=== PATIENT | female | born 1940 | race Caucasian/White ===

== ENCOUNTER 2019-10-08 11:18 | Inpatient (IN) ==
[2019-10-08] MEDS ORDERED: SODIUM CHLORIDE 0.9% 1,000 ML IV STA (11:59)
[2019-10-08] MEDS ORDERED: ONDANSETRON 4 MG/2 ML VIAL IV STA (11:59)
[2019-10-08] MEDS ORDERED: FAMOTIDINE 20 MG/2 ML VIAL IV STA (11:59)
[2019-10-08] MEDS ORDERED: DEXAMETHASONE 4 MG/1 ML VIAL IV STA (11:59)
[2019-10-08] MEDS ORDERED: CETIRIZINE 10 MG TABLET PO STA (11:59)
[2019-10-08 12:57] LABS: Albumin 3.1 G/DL (3.4-5.0); Bilirubin,Total 0.4 MG/DL (0.2-1.0); Calcium 9.5 MG/DL (8.5-10.1); Osmolality,Calculated 278.5 MOS/KG (273-304); Total Protein 8.4 G/DL (6.4-8.3)
[2019-10-08 13:43] LABS: Apearance,Urine CLEAR (Clear); Bilirubin,Urine Negative (Negative); Blood, Urine Negative (Negative); Glucose,Urine (UA) Negative (Negative); Ketones,Urine Negative (Negative); Nitrite,Urine Negative (Negative); Protein,Urine Negative; RBC,Urine 1 /HPF (0-4); Squamous Epithelial Cell,Urine Occasional /HPF (0-10); Urine Color Straw (Yellow); Urine Specific Gravity 1.006 (1.001-1.035); Urine Urobilinogen < 2.0 EU/DL (0.2-1.0); WBC,Urine 2 /HPF (0-6)
[2019-10-08] MEDS ORDERED: GLUCAGON 1 MG VIAL IM PRN (14:38)
[2019-10-08] MEDS ORDERED: DOCUSATE SODIUM 100 MG CAPSULE PO PRN (14:38)
[2019-10-08] MEDS ORDERED: hydrALAZINE 20 MG/1 ML VIAL IV PRN (14:38)
[2019-10-08] MEDS ORDERED: ONDANSETRON 4 MG/2 ML VIAL IV PRN (14:38)
[2019-10-08] MEDS ORDERED: DEXTROSE 50% 25 GM/50 ML VIAL IV PRN (14:38)
[2019-10-08] MEDS ORDERED: ACETAMINOPHEN 325 MG TABLET PO PRN (14:38)
[2019-10-08] MEDS ORDERED: guaiFENesin/DM ER 600-30 MG TABLET PO PRN (14:38)
[2019-10-08] MEDS ORDERED: ENOXAPARIN 40 MG/0.4 ML SYRINGE SUBCUT SCH (15:00)
[2019-10-08] MEDS: ENOXAPARIN 80 MG/0.8 ML SYRINGE SUBCUT SCH (16:26)
[2019-10-08] MEDS: INSULIN LISPRO 100 UNIT/ML SUBCUT SCH ×2 (17:59→21:15)
[2019-10-08 19:15] LABS: Basophils # 0.1 10*3/uL (0.0-0.2); Basophils % 0.8 % (0.0-0.8); Eosinophils # 0.4 10*3/uL (0.0-0.87); Eosinophils % 3.8 % (0.00-10.9); Hematocrit 41.3 VOL% (35.7-47.0); Hemoglobin 13.5 GM/DL (12.0-16.0); Immature Granulocytes % 1.7 %; Lymphocytes # 1.3 10*3/uL (1.4-4.0); Lymphocytes % 11.4 % (21.3-54.2); Mean Corpuscular HGB Conc 32.7 GM/DL (32-36); Mean Corpuscular Volume 90.4 FL (87-102); Mean Platelet Volume 10.3 FL (9.6-12.0); Monocytes % 11.5 % (1.7-12.7); Neutrophils % 70.8 % (38.7-73.9); Platelet Count 341 T/CUMM (130-400); Red Blood Count 4.57 MC/CUMM (3.8-5.5); White Blood Count 11.6 T/CUMM (4-12)
[2019-10-09] MEDS: ENOXAPARIN 80 MG/0.8 ML SYRINGE SUBCUT SCH ×2 (03:16→20:29)
[2019-10-09 05:40] LABS: Basophils # 0.1 10*3/uL (0.0-0.2); Basophils % 0.6 % (0.0-0.8); Eosinophils % 0.4 % (0.00-10.9); Hematocrit 38.5 VOL% (35.7-47.0); Hemoglobin 12.5 GM/DL (12.0-16.0); Immature Granulocytes % 2.4 %; Lymphocytes # 1.1 10*3/uL (1.4-4.0); Lymphocytes % 13.1 % (21.3-54.2); Mean Corpuscular HGB Conc 32.5 GM/DL (32-36); Mean Corpuscular Volume 91.2 FL (87-102); Mean Platelet Volume 9.8 FL (9.6-12.0); Monocytes % 10.8 % (1.7-12.7); Neutrophils % 72.7 % (38.7-73.9); Platelet Count 310 T/CUMM (130-400); Red Blood Count 4.22 MC/CUMM (3.8-5.5); Red Cell Distribution Width 14.1 % (9.3-17.3); White Blood Count 8.5 T/CUMM (4-12)
[2019-10-09 06:14] LABS: Albumin 2.8 G/DL (3.4-5.0); Bilirubin,Total 0.4 MG/DL (0.2-1.0); Calcium 9.2 MG/DL (8.5-10.1); Osmolality,Calculated 284.3 MOS/KG (273-304); Total Protein 7.5 G/DL (6.4-8.3)
[2019-10-09] MEDS: DEXAMETHASONE INJ 10 MG in SODIUM CHLORIDE 0.9% 50 ML IV SCH (08:47)
[2019-10-09] MEDS: PANTOPRAZOLE 40 MG TABLET PO SCH (08:47)
[2019-10-09] MEDS: INSULIN LISPRO 100 UNIT/ML SUBCUT SCH ×4 (08:51→20:47)
[2019-10-09] MEDS: LOSARTAN 25 MG TABLET PO SCH (12:21)
[2019-10-09] MEDS: ASPIRIN EC 81 MG TABLET PO SCH (12:21)
[2019-10-09] MEDS: DILTIAZEM CD 240 MG CAPSULE PO SCH (12:21)
[2019-10-09] MEDS: SIMVASTATIN 20 MG TABLET PO SCH (20:29)
[2019-10-10] MEDS: INSULIN LISPRO 100 UNIT/ML SUBCUT SCH ×4 (08:12→20:40)
[2019-10-10] MEDS: ENOXAPARIN 80 MG/0.8 ML SYRINGE SUBCUT SCH ×2 (09:47→20:40)
[2019-10-10] MEDS: DEXAMETHASONE INJ 10 MG in SODIUM CHLORIDE 0.9% 50 ML IV SCH (09:48)
[2019-10-10] MEDS: CALCIUM CARBONATE CHEW 500 MG TABLET PO SCH (09:48)
[2019-10-10] MEDS: MAGNESIUM OXIDE 400 MG TABLET PO SCH (09:49)
[2019-10-10] MEDS: CHOLECALCIFEROL 5,000 UNIT TABLET PO SCH (09:49)
[2019-10-10] MEDS: LEVOTHYROXINE 88 MCG TABLET PO SCH (09:49)
[2019-10-10] MEDS: ASCORBIC ACID 500 MG TABLET PO SCH (09:49)
[2019-10-10] MEDS: DILTIAZEM CD 240 MG CAPSULE PO SCH (09:49)
[2019-10-10] MEDS: ASPIRIN EC 81 MG TABLET PO SCH (09:50)
[2019-10-10] MEDS: PANTOPRAZOLE 40 MG TABLET PO SCH (09:50)
[2019-10-10] MEDS: OMEGA 3 ACID ETHYL ESTERS 1 GM CAPSULE PO SCH (09:50)
[2019-10-10] MEDS: POTASSIUM CHLORIDE 20 MEQ TABLET PO SCH (09:50)
[2019-10-10] MEDS: LOSARTAN 25 MG TABLET PO SCH (09:50)
[2019-10-10] MEDS: SIMVASTATIN 20 MG TABLET PO SCH (20:40)
[2019-10-11 05:57] LABS: Basophils % 0.3 % (0.0-0.8); Eosinophils % 0.1 % (0.00-10.9); Hemoglobin 13.2 GM/DL (12.0-16.0); Immature Granulocytes % 1.6 %; Immature Granulocytes Absolute 0.16 #; Lymphocytes % 10.1 % (21.3-54.2); Mean Corpuscular Volume 89.7 FL (87-102); Mean Platelet Volume 9.8 FL (9.6-12.0); Monocytes % 10.3 % (1.7-12.7); Neutrophils % 77.6 % (38.7-73.9); Platelet Count 379 T/CUMM (130-400); Red Blood Count 4.46 MC/CUMM (3.8-5.5); Red Cell Distribution Width 13.6 % (9.3-17.3); White Blood Count 10.2 T/CUMM (4-12)
[2019-10-11 06:21] LABS: Calcium 9.2 MG/DL (8.5-10.1); Osmolality,Calculated 281.7 MOS/KG (273-304)
[2019-10-11] MEDS: ENOXAPARIN 80 MG/0.8 ML SYRINGE SUBCUT SCH (10:10)
[2019-10-11] MEDS: INSULIN LISPRO 100 UNIT/ML SUBCUT SCH ×2 (10:10→11:48)
[2019-10-11] MEDS: LEVOTHYROXINE 88 MCG TABLET PO SCH (10:11)
[2019-10-11] MEDS: MAGNESIUM OXIDE 400 MG TABLET PO SCH (10:11)
[2019-10-11] MEDS: ASPIRIN EC 81 MG TABLET PO SCH (10:11)
[2019-10-11] MEDS: DILTIAZEM CD 240 MG CAPSULE PO SCH (10:11)
[2019-10-11] MEDS: OMEGA 3 ACID ETHYL ESTERS 1 GM CAPSULE PO SCH (10:11)
[2019-10-11] MEDS: CALCIUM CARBONATE CHEW 500 MG TABLET PO SCH (10:11)
[2019-10-11] MEDS: POTASSIUM CHLORIDE 20 MEQ TABLET PO SCH (10:11)
[2019-10-11] MEDS: ASCORBIC ACID 500 MG TABLET PO SCH (10:12)
[2019-10-11] MEDS: CHOLECALCIFEROL 5,000 UNIT TABLET PO SCH (10:12)
[2019-10-11] MEDS: PANTOPRAZOLE 40 MG TABLET PO SCH (10:12)
[2019-10-11] MEDS: LOSARTAN 25 MG TABLET PO SCH (10:12)
[2019-10-11] MEDS: DEXAMETHASONE INJ 10 MG in SODIUM CHLORIDE 0.9% 50 ML IV SCH (10:26)
[2019-10-11 11:45] VITALS: BP 139/63
== END 2019-10-11 15:30 | disposition home or self-care (01) | DRG 177 ==
LOC: N.ED 11:18 → SUATTDRO 14:38 → N.EDINP 14:38 → N.2E 15:40
PROVIDERS: ADMIT Internal Medicine; ATTEND Phlebology